=== PATIENT | female | born 1975 | race Caucasian/White ===

== ENCOUNTER 2017-09-08 09:57 | Inpatient (IN) ==
[2017-09-08] MEDS ORDERED: Ondansetron 4 MG/2 ML VIAL IVP ONE ×2 (10:09→14:51)
[2017-09-08] MEDS ORDERED: Aspirin 81 MG TAB.CHEW PO ONE (10:09)
[2017-09-08] MEDS ORDERED: 0.9 % Sodium Chloride 500 ML IVC ONE (10:09)
--- NOTE | 2017-09-08 10:15 | Emergency Department Note ---
START Narrative - START START: I examined this patient and my medical decision-making was reviewed with the PUTTY AND PATCH WORKER/PA/Advanced Practice Nurse/Resident Physician. I agree with the documented findings, disposition and treatment plan as described except to the extent set forth below. ED attending: Patient's emergency medicine resident Dr. Cobos. Please see copy of this note for H&P evaluation and management and ED disposition. We both had independent [id number] time in contact with this patient. Briefly: 41-year-old female nonsmoker who presents to the ER with chest pain nausea and vomiting radiating to forearm. Positive family history nonspecific EKG changes. Her HEART score is a 4 which is moderate risk. Patient having aspirin nitroglycerin Zofran IV fluids chest x-ray troponin and other screening labs. Admission is certainly considered. Provided 30 minutes critical care service for this patient. Disposition pending.
[2017-09-08] MEDS: Nitroglycerin 0.4 MG TAB.SUBL SL ONE ×2 (10:19→10:29)
[2017-09-08 10:38] LABS: Basophils % 0.5 %; Eosinophils # 0.4 K/mcL (0.0-0.6); Eosinophils % 4.9 %; Hemoglobin 14.5 g/dL (11.5-15.4); Immature Granulocytes % 0.4 % (0-4); Lymphocytes # 2.2 K/mcL (0.6-4.6); Lymphocytes % 29.1 %; Mean Corpuscular Hemoglobin 29.6 pg (28.0-33.3); Mean Corpuscular Volume 89.8 fL (83.0-100.0); Mean Platelet Volume 9.5 fL (9.4-12.4); Monocytes # 0.5 K/mcL (0.0-1.3); Monocytes % 6.4 %; Neutrophils # 4.3 K/mcL (1.6-8.9); Platelet Count 275 K/mcL (140-400); Segmented Neutrophils % 58.7 %
[2017-09-08 10:50] LABS: BUN/Creatinine Ratio 12 (6-26); Blood Urea Nitrogen 12 mg/dL (7-20); Calcium 8.9 mg/dL (8.6-10.8); Carbon Dioxide 22 mEq/L (19-29); Chloride 107 mEq/L (98-109); Glucose 100 mg/dL (70-99); Osmolality,Calculated 286 (280-300); Potassium 3.9 mEq/L (3.5-4.5); Sodium 138 mEq/L (136-145); eGFR For African Americans > 60 (> 60); eGFR For Non-African Americans > 60 (> 60)
[2017-09-08] MEDS ORDERED: *HR* Morphine 2 MG/ML SYRINGE IVP ONE ×2 (11:15→14:03)
[2017-09-08] MEDS ORDERED: Ondansetron 4 MG/2 ML VIAL IVP STA (11:39)
--- NOTE | 2017-09-08 12:05 | Emergency Department Note ---
Disposition Clinical Impression: Chest pain Qualifiers: Chest pain type: other chest pain Qualified Code(s): R07.89 - Other chest pain ; R07.8 - Other chest pain Disposition: Admitted As Inpatient Condition: Good Time of Disposition: 12:09 General Adult HPI - General Chief complaint: ED Chest Pain Stated complaint: chest pain Time Seen by Provider: 09/08/17 10:09 Source: patient Limitations: no limitations Nursing Notes Reviewed: Yes Vital Signs Reviewed: Yes - History of Present Illness HPI Narrative: 41-year-old female presenting to the emergency department complaining of chest pain at [place] prior to arrival. Patient states she feels like there is pressure and stabbing pain from substernal area down her left arm. She states she felt diaphoretic, nauseous and vomited multiple times. She states she had similar symptoms on but they resolved on their own. Patient has never been worked up from a cardiac standpoint. She has no significant cardiac history. Patient did have high blood pressure during but otherwise has no significant past medical history. She states she is having chest pain right now. She denies shortness of breath or dizziness. Patient does not smoke but does have significant family history of her father having a myocardial infarction at the age of early 40s. Pain Scale: 5 - Related Data Home Medications Medication Instructions Recorded Confirmed BuPROPion XL (24 HR) [Wellbutrin 150 mg PO DAILY 09/08/17 09/08/17 XL] Citalopram Hydrobromide 40 mg PO DAILY 09/08/17 09/08/17 [Citalopram HBr] Fluticasone Propionate Nasal 50 mcg NS DAILY 09/08/17 09/08/17 [Flonase] Loratadine [Claritin] 10 mg PO DAILY 09/08/17 09/08/17 Metformin HCl [Metformin HCl ER] 1,000 mg PO DAILY 09/08/17 09/08/17 Allergies Allergy/AdvReac Type Severity Reaction Status Date / Time Penicillins Allergy Anaphylaxis Verified 09/08/17 11:25 All systems ED: reviewed and negative except as stated. Constitutional: Denies: fever, chills, weakness Eyes: Reports: as per HPI ENT ED: Reports: as per HPI Cardiovascular: Reports: chest pain. Denies: palpitations, dyspnea on exertion Respiratory: Denies: cough, dyspnea, wheezes Gastrointestinal: Reports: nausea, vomiting. Denies: abdominal pain Genitourinary: Reports: as per HPI Musculoskeletal: Reports: as per HPI Integumentary: Denies: rash, abrasion, lesions Neurological: Denies: weakness, numbness, paresthesias Psychiatric: Reports: as per HPI Endocrine: Reports: as per HPI Hematological/Lymphatic: Reports: as per HPI Allergic/Immunologic: Reports: as per HPI Past Medical History - Past Medical History Attestation: Yes The following information was validated with the patient. Medical history: Reports: no medical history Psychiatric history: Reports: anxiety VISUAL EDUCATOR history: Reports: polycystic ovary syndrome - Social History Smoking Status: Never smoker Smokeless Tobacco Status: No Alcohol use: Reports: occasionally Drug use: Reports: none Physical Exam - General Limitations: no limitations General appearance: alert, in no apparent distress - Head Head exam: atraumatic, normocephalic, normal inspection - Eye Eye exam: Present: normal appearance, PERRL. Absent: scleral icterus, conjunctival injection - Neck Neck exam: Present: normal inspection, full ROM - Chest Chest inspection: Present: normal inspection, symmetric chest wall rise. Absent : tenderness, rash - Respiratory Respiratory exam: Present: normal lung sounds bilaterally. Absent: respiratory distress, wheezes - Cardiovascular Cardiovascular exam: Present: regular rate, normal rhythm, normal heart sounds - Abdominal Exam Abdominal exam: Present: soft, Non-Tender. Absent: distention, guarding, rebound - Extremities Exam Extremities exam: Present: normal inspection, full ROM - Neurological Exam Neurological exam: Present: alert, oriented X3 - Psychiatric Psychiatric exam: Present: normal affect, normal mood - Skin Skin exam: Present: warm, intact Course Course Narrative: 41-year-old female presenting to the emergency Department N chief complaint of chest pain. We will obtain a chest pain rule out including EKG, troponin, basic lab work and chest x-ray. Initial heart score looking at EKG without troponin results is 4. Patient is currently soft and chest pains we will start a nitro trial as well. Patient's alert and oriented 3 in the room with stable vital signs at this time. Disposition will be admission following results for further cardiac workup. - Reevaluation(s) Reevaluation #1: Patient's lab work and imaging has been completed and are within normal limits. Patient's shelving chest pain we will provide her with morphine at this time. I spoke with the patient who agrees to be admitted for further workup for her chest pain. I spoke with the hospitalist Steven Govea who agrees to accept the patient at this time. He would like me to order an echo under his name for further workup of this chest pain. I will complete this as well. Time: 12:08 Vital Signs Temperature 97.8 F 09/08/17 10:01 Pulse Rate 69 09/08/17 10:01 Respiratory Rate 16 09/08/17 10:01 Blood Pressure 144/97 09/08/17 10:01 O2 Sat by Pulse Oximetry 97 09/08/17 10:01 Temperature 97.8 F 09/08/17 10:01 Pulse Rate 68 09/08/17 11:58 Respiratory Rate 16 09/08/17 11:58 Blood Pressure 123/83 09/08/17 11:58 O2 Sat by Pulse Oximetry 95 09/08/17 11:58 Oxygen Delivery Oxygen Delivery Room Air Medical Decision Making - Lab Data Result diagrams: 09/08/17 10:18 09/08/17 10:18 Lab Results 09/08/17 09/08/17 09/08/17 Range/Units 10:18 10:18 10:18 WBC 7.4 (4.3-11.1) K/mcL RBC 4.90 (3.82-4.97) M/mcL Hgb 14.5 (11.5-15.4) g/dL Hct 44.0 (35.3-44.9) % MCV 89.8 (83.0-100.0) fL MCH 29.6 (28.0-33.3) pg MCHC 33.0 (31.6-35.5) g/dL RDW 13.0 (11.5-14.5) % Plt Count 275 (140-400) K/mcL MPV 9.5 (9.4-12.4) fL Immature Gran % 0.4 (0-4) % Seg Neutrophils % 58.7 % Lymphocytes % 29.1 % Monocytes % 6.4 % Eosinophils % 4.9 % Basophils % 0.5 % Neutrophils # 4.3 (1.6-8.9) K/mcL Lymphocytes # 2.2 (0.6-4.6) K/mcL Monocytes # 0.5 (0.0-1.3) K/mcL Eosinophils # 0.4 (0.0-0.6) K/mcL Basophils # 0.0 (0.0-0.2) K/mcL Sodium 138 (136-145) mEq/L Potassium 3.9 (3.5-4.5) mEq/L Chloride 107 (98-109) mEq/L Carbon Dioxide 22 (19-29) mEq/L BUN 12 (7-20) mg/dL Creatinine 0.99 (0.57-1.11) mg/dL Est GFR ( Amer) > 60 (> 60) Est GFR (Non-Af Amer) > 60 (> 60) BUN/Creatinine Ratio 12 (6-26) Glucose 100 H (70-99) mg/dL Calculated Osmolality 286 (280-300) Calcium 8.9 (8.6-10.8) mg/dL Troponin I 0.01 (0-0.03) ng/mL - EKG Data EKG #1 EKG attestation: Yes I reviewed and interpreted this EKG. EKG results narrative: Sinus rhythm. 64 bpm. Normal axis. IA interval 151, QRS 99, QTC 436. No obvious signs of ST segment elevation or ischemia noted. When compared to previous EKG completed on 12/18/2009 no significant changes noted
[2017-09-08] MEDS ORDERED: Nitroglycerin 0.4 MG TAB.SUBL SL PRN (14:04)
[2017-09-08] MEDS ORDERED: Naloxone 0.4 MG/ML INJ IVP PRN (17:12)
[2017-09-08] MEDS ORDERED: Ondansetron ODT 4 MG TAB.RAPDIS SL PRN (17:12)
[2017-09-08] MEDS ORDERED: 0.9 % Sodium Chloride 1,000 ML IVC SCH (17:15)
--- NOTE | 2017-09-08 17:23 | Internal Med History&Physical ---
Date of Encounter: 09/08/17 Time of Encounter: 17:18 Assessment and Plan (1) Chest pain Current visit: Yes Status: Acute 41/female Left-sided precordial chest pain. radiating and localized. Relieved by rest and nitroglycerin. Likely typical chest pain. Strong family history. Plan: -Admitted as an observation. -ASA/statins/beta blockers. -CBC/CMP/lipid panel/UA -Echocardiogram. -Nothing by mouth after midnight including medications. -If echocardiogram is normal and if troponins are negative then we will get a stress test tomorrow. Plan discussed with the patient and patient's family member Qualifiers: Chest pain type: other chest pain Qualified Code(s): R07.89 - Other chest pain; R07.8 - Other chest pain (2) Polycystic ovarian syndrome Current visit: Yes Status: Acute Patient is presently on metformin for polycystic ovarian syndrome. During the hospitalization we will hold her metformin. (3) Seasonal allergies Current visit: Yes Status: Acute Patient has multiple seasonal allergies. At this point we will hold her medications. Qualifiers: Chronicity: unspecified Allergic rhinitis trigger: other Qualified Code(s ): J30.89 - Other allergic rhinitis (4) DVT prophylaxis Current visit: Yes Status: Acute SCD Medical decision making: This patient has a moderate to severe risk of worsening in spite of being on the appropriate medication due to underlying comorbid conditions Internal Medicine - H&P: HPI Chief complaint: Chest pain Admitted From: Emergency Dept Plans for Post Hospital Care: Home History of present illness: PCP: [facility] from [facility]. Brief past medical history: Known to have a polycystic ovarian syndrome for which she is taking metformin, multiple issues with the allergies and she has an appointment with the ENT, anxiety disorder History of present illness: Patient had a ongoing allergies for the past 1 week. Yesterday she watched [employer] and had few beers along with the wine. She woke up this morning and at around 9:00 she had a excruciating left- sided precordial pain which was radiating to her left arm and left fingers. This pain lasted for more than 10 minutes. Patient was nauseous and she had an episode of vomiting. Patient claims that the pain was so severe that she was in deep sweat. Patient claims that this was a pain she never experienced before. Patient was at her friend's house and they called squad which gave her nitroglycerin and to which the pain responded pretty well. Patient denies that shortness of breath, dizziness, abdominal pain, diarrhea or constipation. Workup in the emergency room: Patient was evaluated in the emergency room. Basic labs were drawn. Reason for admission: Chest pain to rule out ACS. Family history: Patient's father had first [place] at the age of 34 and second [place] at the age of 52. On of both sides of patient's parents is a strong family history of coronary artery disease. Past Med Surg Social Fam HX - Past Medical History Medical history: no medical history Psychiatric history: anxiety, depression - Past Surgical History Surgical History: , cholecystectomy - Social History Smoking Status: Former smoker Smokeless Tobacco Status: No Alcohol use: occasionally Drug use: none - Family History Father Name: Kevin Marin Living Status: Still Living Hx Family Cardiac Disorders: Yes (2 [place]'s) Internal Medicine - H&P: Meds BuPROPion XL (24 HR) [Wellbutrin XL] 150 mg PO DAILY 09/08/17 [History] Citalopram Hydrobromide [Citalopram HBr] 40 mg PO DAILY 09/08/17 [History] Fluticasone Propionate Nasal [Flonase] 50 mcg NS DAILY 09/08/17 [History] Loratadine [Claritin] 10 mg PO DAILY 09/08/17 [History] Metformin HCl [Metformin HCl ER] 1,000 mg PO DAILY 09/08/17 [History] 3 Allergy/AdvReac Type Severity Reaction Status Date / Time Penicillins Allergy Anaphylaxis Verified 09/08/17 11:25 All Systems PM: A 10-system review of systems was performed and is negative for pertinent findings except as documented above in the HPI. - Constitutional Constitutional: no chills, no fever(s), no night sweats - EENT Eyes: no change in vision, no discharge, no pain, no photophobia Ears: no ear discharge, no ear pain, no tinnitus Nose, mouth and throat: no dysphagia, no nasal discharge, no neck pain, no sore throat - Cardiovascular Cardiovascular ROS IM: chest pain, diaphoresis - Respiratory Respiratory: cough - Gastrointestinal Gastrointestinal: belching, vomiting - Genitourinary Genitourinary: no change in urinary stream, no dysuria, no flank pain, no hematuria - Musculoskeletal Musculoskeletal ROS IM: no numbness, no tingling - Integumentary Integumentary IM: no rash, no unusual bruising - Neurological Neurological ROS: no confusion, no convulsions, no focal weakness, no numbness, no tingling, no tremor(s) - Hematologic/Lymphatic Hematologic/Lymphatic: no easy bruising - Constitutional Vitals: Temp Pulse Resp BP Pulse Ox 98.1 F 78 15 127/80 95 09/08/17 15:20 09/08/17 15:20 09/08/17 15:20 09/08/17 15:20 09/08/17 15:20 General appearance: Present: A&O X 3, pleasant, no acute distress, answers questions appropriately - Head Head exam: Present: atraumatic, normocephalic - Eye Eye exam: Present: PERRL, conjuntiva pink, sclera anicteric Pupils: Present: PERRL - Neck Neck exam general surgery: Present: supple, trachea midline. Absent: lymphadenopathy - Respiratory Respiratory exam: Present: CTAB. Absent: accessory muscle use, rales, rhonchi, wheezes - Cardiovascular Cardiovascular exam: Present: RRR, +S1, +S2. Absent: diastolic murmur, gallop, rubs, systolic murmur - GI/Abdominal GI/Abdominal exam: Present: normal bowel sounds, soft, no peritoneal signs. Absent: distended, tenderness - Extremities Exam Extremities exam: Present: warm, radial pulses palpable and symmetrical. Absent : calf tenderness, cyanotic, pedal edema - Neurological Exam Neurological exam: Present: CN II-XII intact, oriented X3, no focal deficits. Absent: pronater drift, facial droop, speech deficit - Skin Skin exam: Present: dry, intact Internal Med - H&P Results - Labs CBC & Chem 7: 09/08/17 10:18 09/08/17 10:18 Labs: Test results discussed with the ER physician.
[2017-09-08] MEDS ORDERED: *HR* Heparin 5,000 UNIT/ML VIAL IVP PRN ×2 (18:14)
[2017-09-08] MEDS ORDERED: *HR* Heparin 5,000 UNIT/ML VIAL IVP ONE (18:14)
[2017-09-08] MEDS ORDERED: Heparin 25,000 UNIT/500 ML D5W 25,000 UNIT/500 ML MLS IVC SCH (18:15)
[2017-09-08] MEDS: Aspirin Enteric Coated 81 MG Tablet PO SCH (18:27)
--- NOTE | 2017-09-08 18:31 | Event Note ---
Date of Encounter: 09/08/17 Time of Encounter: 06:25 RN informed regarding second troponin is 12. already on ASA 81/Lipitor 40/Metoprolol 12.5/Nitro started Heparin drip spoke with Dr Andino ( Interventional Cardiology) all above updated to him all above including location of the patient. recommended : preg test. will get test
[2017-09-08] MEDS ORDERED: *HR* Heparin 10,000 UNIT/10 ML VIAL ONE (18:45)
[2017-09-08] MEDS ORDERED: Heparin 1,000 UNITS/500 mL NS 500 ML ONE (18:45)
[2017-09-08] MEDS ORDERED: 0.9 % Sodium Chloride 2,000 ML ONE (18:45)
[2017-09-08] MEDS ORDERED: *HR* FentaNYL (PF) 250 MCG/5 ML VIAL ONE (18:45)
[2017-09-08] MEDS ORDERED: *HR* Midazolam HCl 5 MG/5 ML VIAL IVP ONE (18:45)
[2017-09-08] MEDS ORDERED: Nitroglycerin 1,000 MCG/10 ML VIAL IV ONE (18:46)
[2017-09-08 18:59] LABS: Hematocrit 42.2 % (35.3-44.9); Hemoglobin 14.2 g/dL (11.5-15.4); Mean Corpuscular HGB Conc 33.6 g/dL (31.6-35.5); Mean Corpuscular Hemoglobin 30.1 pg (28.0-33.3); Mean Corpuscular Volume 89.4 fL (83.0-100.0); Mean Platelet Volume 9.7 fL (9.4-12.4); Platelet Count 286 K/mcL (140-400); Red Blood Count 4.72 M/mcL (3.82-4.97); Red Cell Distribution Width 12.8 % (11.5-14.5)
[2017-09-08] MEDS ORDERED: *HR* Ticagrelor 90 MG TABLET PO ONE (19:00)
[2017-09-08 19:01] LABS: INR 1.1; Prothrombin Time 11.3 Seconds (9.4-12.1)
[2017-09-08] MEDS ORDERED: *HR* Ticagrelor 90 MG TABLET ONE (19:02)
[2017-09-08 19:19] LABS: Activated Partial Thrombo Time > 360.0 Seconds (26.0-36.0)
[2017-09-08] MEDS ORDERED: Tirofiban 12.5 MG/250ML 12.5 MG/250 ML BAG ONE (19:22)
[2017-09-08 19:31] LABS: Heparin anti-factor XA UFH 1.61 IU/mL (0.30-0.70)
[2017-09-08] MEDS ORDERED: Nitroglycerin 25 MG/250 ML INFUS..BTL IVC ONE (19:53)
[2017-09-08] MEDS: Famotidine 20 MG TABLET PO SCH ×2 (20:35→22:18)
[2017-09-08] MEDS: Acetaminophen 325 MG TABLET PO PRN (20:36)
--- NOTE | 2017-09-08 21:07 | Cardiology Consult Note ---
Date of Encounter: 09/08/17 Time of Encounter: 21:01 Assessment and Plan (1) Chest pain Current Visit: Yes Status: Acute Continue calcium channel blockers and IV nitro drip for coronary artery spasm. Medical management also for coronary artery disease including a statin aspirin and Plavix. Recommend holding beta blockers at this time and obtaining a tox/ drug screen. Serial cardiac markers and echocardiogram in a.m. If troponins trend higher and patient continues to have active chest pain may consider possible POBA of the mid LAD with a 1.2 mm or 1.5 mm balloon. Qualifiers: Chest pain type: other chest pain Qualified Code(s): R07.89 - Other chest pain; R07.8 - Other chest pain Code(s): R07.9 - Chest pain, unspecified Discussion w patient/family: The assessment and plan as outlined above was discussed with the patient and/or family members who expressed understanding and agreement. All questions were answered. Thank you for involving us in the care of your patient. Please call with any questions. History of Present Illness Consult date: 09/08/17 Requesting physician: Zoran Roe Consult reason: NSTEMI Chief complaint: CP History of present illness: Ms. Hood Marin is a 41 year old female presents to emergency department with chest pain earlier this morning. Patient was seen and evaluated with chest pain on and off and initial troponin negative. Cardiology was consulted and around 7 PM due to an elevated troponin of 12. Patient was having on and off chest pain with dynamic EKG changes with V2 ST elevation and lateral reciprocal changes. Patient was taken urgently to the cardiac catheter lab where she was found to have a long segment of the mid LAD diffusely diseased. This segment involves a small caliber mid to distal LAD. Likely mid to distal LAD is less than 2.0 mm in diameter. LVEF during her calf is approximately 35% with mid to distal/apical and distal inferior wall dyskinesis. Patient was started on IV nitro drip during the left heart catheter which helped decrease her chest pain. Serial cardiac markers are pending. Her chest pain started today with one single previous episode however no gradual onset of chest pain or exertional shortness of breath noted. She has been under a lot of stress lately described by the patient and her family members. Currently her chest pain has resolved with very minimal right-sided back discomfort. Her retrosternal chest pain left arm numbness and jaw pain have all resolved on an IV nitro drip. She denies any orthopnea PND presyncope or syncope. Past Med Surg Social Fam HX - Past Medical History Medical history: no medical history Psychiatric history: anxiety, depression - Past Surgical History Surgical History: , cholecystectomy - Social History Smoking Status: Former smoker Smokeless Tobacco Status: No Alcohol use: occasionally Drug use: none - Family History Father Name: Kevin Marin Living Status: Still Living Hx Family Cardiac Disorders: Yes (2 [place]'s) Medications and Allergies BuPROPion XL (24 HR) [Wellbutrin XL] 150 mg PO DAILY 09/08/17 [History] Citalopram Hydrobromide [Citalopram HBr] 40 mg PO DAILY 09/08/17 [History] Fluticasone Propionate Nasal [Flonase] 50 mcg NS DAILY 09/08/17 [History] Loratadine [Claritin] 10 mg PO DAILY 09/08/17 [History] Metformin HCl [Metformin HCl ER] 1,000 mg PO DAILY 09/08/17 [History] 3 Allergy/AdvReac Type Severity Reaction Status Date / Time Penicillins Allergy Anaphylaxis Verified 09/08/17 11:25 All Systems Review: A 10-system review of systems was performed and is negative for pertinent findings except as documented above in the HPI. Physical Examination Vital Signs, Last 4 Hours Temp Pulse Resp BP Pulse Ox 09/08/17 20:26 98.1 F 75 18 128/83 99 09/08/17 18:45 98.4 F 102 16 145/92 96 General: Conversant, No Apparent Distress HEENT: Atraumatic, Normocephaly, Mucus Membranes Moist Neck: No JVD, Normal carotid pulses Cardiac: Reg Rate and Rhythm, Normal S1 and S2, No Murmur Lungs: Normal Breath Sounds, No Wheeze, Rales, Rhonchi Neuro: Alert and responsive, No focal deficits noted Abdomen: Soft, Non-Tender Skin: No rashes noted on visualized skin Musculoskeletal: No Chest Wall Tenderness Extremities: No Clubbing, No Cyanosis, No Edema, Normal Pulses Results 09/08/17 18:48 09/08/17 10:18 Lab Results 09/08/17 09/08/17 09/08/17 17:42 18:48 18:48 WBC 13.1 H D Hgb 14.2 Hct 42.2 Plt Count 286 INR 1.1 APTT > 360.0 H* Troponin I 12.57 H* Consult Discharge Plan - Plan Referrals: NONE,PCP [Primary Care Provider] -
[2017-09-08 21:32] LABS: Amphetamine Screen,Urine Negative ng/mL (Cutoff=1000); Barbiturate Screen,Urine Negative ng/mL (Cutoff=200); Benzodiazepines Screen,Urine Positive ng/mL (Cutoff=200); Cannabinoid Screen,Urine Negative ng/mL (Cutoff = 50); Cocaine Screen,Urine Negative ng/mL (Cutoff= 300); Opiate Screen,Urine Positive ng/mL (Cutoff=300); Phencyclidine Screen,Urine Negative ng/mL (Cutoff=25)
[2017-09-08 21:45] LABS: Activated Partial Thrombo Time 140.4 Seconds (26.0-36.0)
[2017-09-08 21:57] LABS: Heparin anti-factor XA UFH 0.98 IU/mL (0.30-0.70)
[2017-09-08] MEDS: *HR* LORazepam 2 MG/ML VIAL IVP PRN (22:18)
[2017-09-09] MEDS: Acetaminophen 325 MG TABLET PO PRN (03:17)
[2017-09-09 04:50] LABS: Bilirubin,Urine Negative (Negative); Blood,Urine Large (Negative); Clarity,Urine Clear (Clear); Color,Urine Yellow (Yellow); Glucose,Urine (UA) 100 mg/dL (Normal); Ketones,Urine Negative (Negative); Leukocyte Esterase,Urine Negative (Negative); Nitrite,Urine Negative (Negative); Protein,Urine Negative (Neg-Trace); Specific Gravity,Urine > 1.030 (1.010-1.025); Urobilinogen,Urine Normal (Normal)
[2017-09-09 04:51] LABS: Bacteria,Urine Few per hpf (None-Few); Hyaline Casts,Urine None Seen per lpf (None-Few); RBC,Urine 50-100 per hpf (0-3); Squamous Epithelial Cell,Urine Many per lpf (None-Few)
[2017-09-09 05:04] LABS: Basophils % 0.1 %; Eosinophils % 0.2 %; Hematocrit 36.6 % (35.3-44.9); Immature Granulocytes % 0.3 % (0-4); Immature Platelets 3.1 % (1.1-6.1); Lymphocytes # 1.5 K/mcL (0.6-4.6); Lymphocytes % 10.9 %; Mean Corpuscular HGB Conc 33.1 g/dL (31.6-35.5); Mean Corpuscular Hemoglobin 29.4 pg (28.0-33.3); Mean Corpuscular Volume 89.1 fL (83.0-100.0); Mean Platelet Volume 9.5 fL (9.4-12.4); Monocytes # 0.8 K/mcL (0.0-1.3); Monocytes % 5.4 %; Neutrophils # 11.6 K/mcL (1.6-8.9); Platelet Count 271 K/mcL (140-400); Red Blood Count 4.11 M/mcL (3.82-4.97); Red Cell Distribution Width 12.9 % (11.5-14.5); Segmented Neutrophils % 83.1 %
[2017-09-09 05:05] LABS: Hemoglobin 12.1 g/dL (11.5-15.4)
[2017-09-09 05:16] LABS: Activated Partial Thrombo Time 43.7 Seconds (26.0-36.0)
[2017-09-09 05:22] LABS: Alanine Aminotransferase 32 Units/L (0-55); Albumin 3.1 g/dL (3.5-5.0); Albumin/Globulin Ratio 1.1 (1.1-2.2); Alkaline Phosphatase 57 Units/L (38-126); Aspartate Amino Transferase 117 Units/L (5-34); BUN/Creatinine Ratio 11 (6-26); Bilirubin,Total 0.3 mg/dL (0.2-1.2); Blood Urea Nitrogen 9 mg/dL (7-20); Calcium 7.9 mg/dL (8.6-10.8); Carbon Dioxide 20 mEq/L (19-29); Chloride 108 mEq/L (98-109); Chol/HDL Ratio 3.1 (0-4.9); Cholesterol 149 mg/dL (< 200); Globulin 2.7 g/dL (2.4-3.5); Glucose 126 mg/dL (70-99); HDL Cholesterol 48 mg/dL (40-59); LDL Cholesterol,Calculated 86 mg/dL (0-99); Magnesium 1.9 mg/dL (1.6-2.6); Osmolality,Calculated 276 (280-300); Phosphorous 2.6 mg/dL (2.3-4.7); Potassium 3.6 mEq/L (3.5-4.5); Sodium 133 mEq/L (136-145); Total Protein 5.8 g/dL (6.0-8.3); Triglycerides 75 mg/dL (< 150); eGFR For African Americans > 60 (> 60); eGFR For Non-African Americans > 60 (> 60)
[2017-09-09] MEDS ORDERED: Nitroglycerin 25 MG/250 ML INFUS..BTL IVC SCH (08:15)
[2017-09-09] MEDS ORDERED: *HR* Ticagrelor 90 MG TABLET PO SCH (09:00)
--- NOTE | 2017-09-09 09:07 | Invasive Diagnostic Lab Proc ---
Name: Nayely Joel Date of Study: 09/08/2017 Date: 1975 Ht: 66.1in Medical Record#: [id number] Age: 41 Wt: 231.49lb Gender: Female BSA: 2.13 Order #: [id number] BMI: 37.2 Physicians Procedure Physician: Cassandra Vargas MD Referring MD: Referring MD: Staff Name Position Time In Darrion Montiel RN Cigarette Machines Mechanic 06:58 PM Rosetta Blum RT (R) Scrub 06:58 PM Rigo Chi RT (R) Monitor 06:58 PM Indications Indication Non-Stemi Procedures Performed Procedure L HRT ARTERY/VENTRICLE ANGIO Pre-Procedure Checklist Informed consent is complete signed and on chart. H&P is on chart. ID band is on and ID verified with patient. Pt not NPO for procedure and MD aware. The procedure was described for the patient and questions were answered. Blood Pressure: 145/92 ECG is on chart. Rhythm: NSR Plan of Care Patient will tolerate the procedure without complications. Adequate level of comfort will be maintained. Hemodynamics will remain stable Patient will recover from procedure without complications. Respiratory function will be maintained. Cardiac rhythm will remain stable. Patient temperature will be maintained. Patient and/or family have verbalized understanding of the procedure. Patient Education Intravenous Access Time IV Size Location DC'd Fluid/Drip Rate Units RN 06:57 PM 20g 1 1/" Patent On Arrival Lt Antecubital 0.9NaCl 25 ml/hr Darrion Montiel RN Allergies Penicillins Vital Signs Time BP (mmHg) HR (bpm) O2 Sat. RR (bpm) LOC 06:57 PM 145 / 92 102 96 % 16 5 = Fully awake and oriented or at pre-proc level 07:09 PM / % 5 = Fully awake and oriented or at pre-proc level 07:09 PM / % 4 = Oriented but drowsy 07:25 PM / % 4 = Oriented but drowsy 07:40 PM / % 4 = Oriented but drowsy 07:57 PM 137 / 86 85 100 % 17 08:02 PM 135 / 81 87 100 % 17 08:07 PM 132 / 79 82 99 % 17 07:12 PM 138 / 84 196 98 % 18 07:17 PM 137 / 85 105 99 % 21 07:22 PM 133 / 81 98 96 % 19 07:27 PM 140 / 87 98 96 % 18 07:32 PM 133 / 79 94 96 % 07:37 PM 134 / 89 89 97 % 14 07:42 PM 130 / 75 97 99 % 20 07:47 PM 131 / 82 88 100 % 20 07:52 PM 140 / 85 92 100 % 20 07:55 PM / % 5 = Fully awake and oriented or at pre-proc level Procedural Medications Time Medication Dose Units Method Given By 07:14 PM Oxygen 2 L/min nasal cannula Darrion Montiel RN 07:16 PM Versed 1 mg Intravenous Darrion Montiel RN 07:16 PM Fentanyl 50 mcg Intravenous Darrion Montiel RN 07:17 PM Lidocaine 2% 10 ml Subcutaneous Cassandra Vargas MD 07:29 PM Nitroglycerin 200 mcg Intracoronary Thee Vargas MD 07:34 PM Nitroglycerin 200 mcg Intracoronary Thee Vargas MD 07:40 PM Nitroglycerin 100 mcg Intracoronary Thee Vargas MD 07:55 PM Nitroglycerin 2 mcg/min Intravenous Darrion Montiel RN 07:59 PM Heparin 29.4 ml/hr Intravenous Darrion Montiel RN 08:04 PM Nitroglycerin 5 mcg/min Intravenous Darrion Montiel RN ASA Classification: CLASS II- Mild systemic disease (i.e. well-controlled diabetes, hypertension, asthma, cigarette smoking) Emergent Procedure: ASA score is assumed Mark Score Preprocedure Postprocedure Activity 2- Moves 4 extremities sustained head lift Activity 2- Moves 4 extremities sustained head lift Circulation 2- SBP +/= 20 points of pre-anesthetic level Circulation 2- SBP +/= 20 points of pre-anesthetic level Consciousness 2- Awake and alert oriented x 3 Consciousness 2- Awake and alert oriented x 3 O2 Saturation 2- Able to maintain O2 satruation of 92% on room air O2 Saturation 2- Able to maintain O2 satruation of 92% on room air Respiratory 2- Able to deep breathe and cough well Respiratory 2- Able to deep breathe and cough well Total Score 10 Total Score 10 Contrast Agent: Isovue Diagnostic Contrast: 213 ml Total Contrast: 213 ml Fluoro Dose: 1037 mGy Activated Clotting Time Time Seconds to Clot 07:23 PM 219 08:08 PM 201 Procedure Log Time Note Enter By 06:52 PM CathStat 06:58 PM Darrion Montiel RN Position: Cigarette Machines Mechanic Time in: 18:58 [email or web address] 06:58 PM Rosetta Blum RT (R) Position: Scrub Time in: 18:58 [email or web address] 06:58 PM Rigo Chi RT (R) Position: Monitor Time in: 18:58 [email or web address] 06:58 PM Patient charges- Angio tray pack, Navilyst 3mm J, Pulse Oximetry and ACIST tubing and transducer [email or web address] 07:08 PM Pt arrived to skilled labor 2 at 19:08 [email or web address] 07:09 PM Pt arrived to skilled labor 2 at 19:09 [email or web address] 07:09 PM Physician arrived 19:09 07:09 PM Meet and greet completed 07:09 PM Sign in performed according to hospital policy. bw 07:09 PM Procedure start 19:09 [email or web address] 07:09 PM ASA Class CLASS II- Mild systemic disease (i.e. well-controlled diabetes, hypertension, asthma, cigarette smoking) [email or web address] 07:09 PM Case Delayed No 07:09 PM Time: 19:09 Patient comfortable and pain free: Yes 07:09 PM Time: 19:09LOC: 5 = Fully awake and oriented or at pre-proc level bw 07:12 PM Vitals capture started with the following parameters, Patient=Adult, Interval=5 min, Initial Kmgbdfdh=005 mmHg, Deflation Rate=5 mmHg, Cuff placed on Right Arm 07:12 PM MB=968 bpm, RLGP=065/84 mmhg, SpO2=98.0 %, Resp=18 B/min 07:14 PM Time: 19:14 Oxygen on at 2 L/min per nasal cannula by Darrion Montiel RN 07:14 PM Clinical Presentation: Non-STEMI 07:14 PM Hair removed from procedure site in procedure lab using clippers. Bilateral groin prepped with Chloraprep by Rigo Chi RT (R), safety strap applied then patient was draped. Skin intact. 07:15 PM Recorded ECG: PA=391 Condition=Condition 1 07:16 PM Time: 19:16 Versed 1 mg Intravenous Given by Darrion Montiel RN 07:16 PM Time: 19:16 Fentanyl 50 mcg Intravenous Given by Darrion Montiel RN [email or web address] 07:17 PM Time: 19:17 10 ml Lidocaine 2% to right groin Subcutaneous Given by Cassandra Vargas MD [facility] 07:17 PM Micro-Introducer Kit utilized for sheath placement bw 07:17 PM Pressure channel 1 zeroed. 07:17 PM DG=965 bpm, YQHX=093/85 mmhg, SpO2=99.0 %, Resp=21 B/min, Comment=NSR 07:18 PM Bolus angiogram of right Femoral complete: ml/sec for a total of 5 mls bw 07:19 PM Access obtained by percutaneous puncture. 6Fr 10cm Terumo [place] sheath placed in right Femoral artery. [id number] [email or web address] 07:19 PM 0.035 145cm Navilyst 3mmJ wire [id number] 07:19 PM 5Fr FR 4 catheter inserted over the wire DN 07:20 PM ACT Drawn bw 07:20 PM Recorded Pressure: Ao, HR=94, Condition=Condition 1 (Aorta) Ao 133/91/110 07:21 PM RCA angiography performed in multiple views. 07:21 PM Coronary Dominance: right bw 07:21 PM Catheter removed bw 07:21 PM Inflation device was opened. bw 07:22 PM 6Fr XB LAD 3.5 [place] Bright-Tip guide catheter was used to cannulate the PCI vessel successfully. reused? No 07:22 PM HR=98 bpm, UYCJ=184/81 mmhg, SpO2=96.0 %, Resp=19 B/min, Comment=NSR 07:23 PM LCA angiography performed in multiple views. bw 07:24 PM At 19:23 the ACT was 219 seconds. 07:24 PM Recorded Pressure: Ao, HR=92, Condition=Condition 1 (Aorta) Ao 162/84/113 07:25 PM Time: 19:09LOC: 4 = Oriented but drowsy [email or web address] 07:25 PM Time: 19:09 Patient comfortable and pain free: No rt arm pain [email or web address] 07:25 PM Guide catheter removed intact. [email or web address] 07:26 PM 5Fr FL 4 catheter inserted over the wire DN bw 07:27 PM HR=98 bpm, CJJO=195/87 mmhg, SpO2=96.0 %, Resp=18 B/min, Comment=NSR 07:27 PM Recorded Pressure: Ao, KM=803, Condition=Condition 1 (Aorta) Ao 136/84/108 07:27 PM LCA angiography performed in multiple views. [email or web address] 07:29 PM Time: 19:29 Nitroglycerin 200 mcg Intracoronary Given by Thee Vargas MD ilson 07:29 PM Recorded Pressure: Ao, AC=376, Condition=Condition 1 (Aorta) Ao 113/87/99 07:30 PM Physician reviewing films [email or web address] 07:31 PM Catheter removed [email or web address] 07:31 PM 4Fr JL 4 catheter inserted over the wire [id number] [email or web address] 07:32 PM HR=94 bpm, KMEU=487/79 mmhg, SpO2=96.0 %, Comment=NSR 07:33 PM Recorded Pressure: Ao, HR=94, Condition=Condition 1 (Aorta) Ao 122/85/104 07:34 PM Time: 19:34 Nitroglycerin 200 mcg Intracoronary Given by Thee Vargas MD [email or web address] 07:34 PM Catheter removed [email or web address] 07:35 PM 6Fr XB3.0 [place] Bright-Tip guide catheter was used to cannulate the PCI vessel successfully. reused? No [email or web address] 07:37 PM HR=89 bpm, EALZ=228/89 mmhg, SpO2=97.0 %, Resp=14 B/min, Comment=NSR 07:37 PM Recorded Pressure: Ao, HR=91, Condition=Condition 1 (Aorta) Ao 130/86/106 07:38 PM LCA angiography performed in multiple views. [email or web address] 07:39 PM Physician reviewing films [email or web address] 07:40 PM Time: 19:25LOC: 4 = Oriented but drowsy [email or web address] 07:40 PM Time: 19:25 Patient comfortable and pain free: Yes [email or web address] 07:40 PM Time: 19:40 Nitroglycerin 100 mcg Intracoronary Given by Thee Vargas MD [email or web address] 07:41 PM Recorded Pressure: Ao, HR=94, Condition=Condition 1 (Aorta) Ao 133/90/109 07:42 PM HR=97 bpm, JJTD=686/75 mmhg, SpO2=99.0 %, Resp=20 B/min, Comment=NSR 07:43 PM Physician reviewing films [email or web address] 07:45 PM Recorded Pressure: Ao, HR=90, Condition=Condition 1 (Aorta) Ao 138/101/115 07:45 PM Guide catheter removed intact. [email or web address] 07:46 PM 5Fr Pigtail catheter inserted over the wire [facility] 07:46 PM Catheter selectively placed in left ventricle [facility] 07:46 PM Bolus angiogram of left Ventricle complete: 10 ml/sec for a total of 30 mls [place] [address] 07:46 PM Recorded Pressure: LV, HR=87, Condition=Condition 1 (Left Ventricle) LV 143/19/25 07:47 PM HR=88 bpm, HLMY=899/82 mmhg, ScZ3=856.0 %, Resp=20 B/min 07:49 PM Recorded Pressure: LV, Ao, HR=88, Condition=Condition 1 (Left Ventricle) LV 151/23/26, (Aorta) Ao 141/32/84 07:50 PM Physician reviewing films [place] [address] 07:52 PM HR=92 bpm, JNTX=311/85 mmhg, WjX8=115.0 %, Resp=20 B/min, Comment=NSR 07:55 PM Time: 19:40 Patient comfortable and pain free: No rt arm pain [place] [address] 07:55 PM Time: 19:40LOC: 4 = Oriented but drowsy [place] [address] 07:55 PM Time: 19:55 Nitroglycerin 2 mcg/min Intravenous Given by Darrion Montiel RN [employer] [place] [address] 07:57 PM Recorded Pressure: Ao, HR=85, Condition=Condition 1 (Aorta) Ao 179/89/124 07:57 PM HR=85 bpm, MAYO=363/86 mmhg, UzR3=367.0 %, Resp=17 B/min, Comment=NSR 07:59 PM Time: 19:59 Heparin 29.4 ml/hr Intravenous Given by Darrion Montiel RN [place] [place] [address] 08:02 PM HR=87 bpm, HJXS=487/81 mmhg, GvG8=913.0 %, Resp=17 B/min, Comment=NSR 08:03 PM Recorded ECG: HR=84 Condition=Condition 1 08:04 PM Time: 20:04 Nitroglycerin 5 mcg/min Intravenous Given by Darrion Montiel RN [employer] [place] [address] 08:05 PM Procedure completed at 20:05 [place] [address] 08:05 PM Sign out completed: Radiation Dose 1036.62 mGy Fluoro Time: 7.7 Isovue 370 - 200ml contrast 213 ml given by Cassandra Vargas MD. Complications: NoneCardiac Rehab Consult needed: Confirmed administered medications: Yes [email or web address] 08:05 PM Sheath left in place to be pulled on floor/holding areaV+Pad [email or web address] 08:07 PM Lesion found in Mid LAD. Pre Stenosis: 60 Pre JOSSIE Flow: [email or web address] 08:07 PM Mid/Distal Left Anterior Descending Coronary Artery and diagonal branches with 60% stenosis. If graft is supplying this area, 0 % stenosis [email or web address] 08:07 PM HR=82 bpm, QLEK=535/79 mmhg, SpO2=99.0 %, Resp=17 B/min, Comment=NSR 08:08 PM Post ECG NSR [email or web address] 08:08 PM At 20:08 the ACT was 201 seconds. [email or web address] 08:08 PM Post Blood Pressure 132/79 [email or web address] 08:08 PM Information taught Cardiac Cath [email or web address] 08:08 PM Education needs Procedure, Plan of Care, and Disease Process [email or web address] 08:08 PM Learning barriers :Sedated [email or web address] 08:08 PM Education Methods Verbal [email or web address] 08:08 PM Education evaluation Needs further instruction [email or web address] 08:09 PM Site status No bleeding/hematoma - Rt Groin as reported by Lisbeth Devine RN at 20:08 [email or web address] 08:09 PM Opsite applied [email or web address] 08:09 PM Delay to floor No [email or web address] 08:09 PM Complications: None [email or web address] 08:09 PM Fluoro Time: 7.7 [email or web address] 08:09 PM Isovue 370 - 200ml contrast 213 ml given by Cassandra Vargas MD. [email or web address] 08:09 PM Radiation Dose 1036.62 mGy [email or web address] 08:09 PM Vitals capture stopped. 08:10 PM Time: 19:55LOC: 5 = Fully awake and oriented or at pre-proc level [email or web address] 08:10 PM Time: 19:55 Patient comfortable and pain free: Yes [email or web address] 08:13 PM Report given to karen ALBARRAN Pt taken to ICU Room #10. 20:11 [email or web address] 08:[address] Vargas talking to family in waiting area. [email or web address] 08:18 PM Patient out of room: 20:18 [email or web address] Complications Complication None None Hemodynamics Pressures Site Systolic/A Wave Diastolic/V Wave Mean AO 133 91 110 AO 162 84 113 AO 136 84 108 AO 113 87 99 AO 122 85 104 AO 130 86 106 AO 133 90 109 AO 138 101 115 LV 143 19 25 LV 151 23 26 AO 141 32 84 AO 179 89 124 Post Procedure Information Blood Pressure: 132/79 mmHg Rhythm: NSR Post procedural instructions were given Site Checks Time Location Status Staff Sheath In? Note 08:08 PM Rt Groin No bleeding/hematoma Rosetta Blum RT (R) Pulses Time Site Pre-Procedure Post-Procedure Note 09/08/2017 6:57:00 PM Bilateral DP/PT 2+ 09/08/2017 6:57:00 PM Bilateral radial 2+ Updated by Rigo Chi RT (R) on 09/08/2017 8:20:08 PM RT Charisma electronically signed on 09/08/2017 8:20:34 PM with status of Final
[2017-09-09] MEDS: BuPROPion XL (24 HR) 150 MG TABLET PO SCH (09:14)
[2017-09-09] MEDS: Famotidine 20 MG TABLET PO SCH ×2 (09:14→21:21)
[2017-09-09] MEDS: Aspirin Enteric Coated 81 MG Tablet PO SCH (09:14)
[2017-09-09] MEDS ORDERED: *HR* FentaNYL (PF) 100 MCG/2 ML VIAL IVP ONE (09:38)
--- NOTE | 2017-09-09 10:19 | Event Note ---
Date of Encounter: 09/09/17 Time of Encounter: 10:17 - Cardiology Event Note Ms. Morataya is currently chest pain free on NTG gtt. Plan of care discussed with Dr. Vargas and Dr. Chapman, planning for repeat LHC today to re-evaluate the LAD. Patient seen to have coronary vasospasms. Troponin continued to trend upward. As high as 24. Continues to have groin sheath. R/B/A of repeat LHC discussed and she agrees to proceed.
--- NOTE | 2017-09-09 10:27 | Internal Med Progress Note ---
Date of Encounter: 09/09/17 Time of Encounter: 10:26 - Assessment and plan (1) Chest pain Current Visit: Yes Status: Acute Assessment and plan: Patient had a ongoing chest pain yesterday. She had her second troponin drawn. Her second troponin was 12. EKG was done. EKG was suggestive of a ST elevation in V3. Cardiology consult was called as a stat consult. Cardiology was on the board. Patient underwent left heart catheterization. Please read the cardiology note and consult regarding the same. Qualifiers: Chest pain type: other chest pain Qualified Code(s): R07.89 - Other chest pain; R07.8 - Other chest pain (2) Polycystic ovarian syndrome Current Visit: Yes Status: Acute Assessment and plan: Stable polycystic ovarian syndrome. (3) Seasonal allergies Current Visit: Yes Status: Acute Assessment and plan: Patient does not have any seasonal allergies now. Qualifiers: Chronicity: unspecified Allergic rhinitis trigger: other Qualified Code(s ): J30.89 - Other allergic rhinitis (4) DVT prophylaxis Current Visit: Yes Status: Acute Assessment and plan: Patient is presently on heparin Medical decision making: This patient has a moderate to severe risk of worsening in spite of being on the appropriate medication due to the underlying comorbid conditions. - Subjective Interval history: Patient seen and examined. Chart reviewed. Patient is comfortably lying in the bed. Events noted from RN regarding troponin/creatinine kinase. - Constitutional Vitals: Temp Pulse Resp BP Pulse Ox 97.9 F 78 10 134/95 98 09/09/17 07:50 09/09/17 10:00 09/09/17 10:00 09/09/17 10:00 09/09/17 10:00 General appearance: Present: A&O X 3, pleasant, no acute distress, answers questions appropriately - Head Head exam: Present: atraumatic, normocephalic - Eye Eye exam: Present: PERRL, conjuntiva pink, sclera anicteric Pupils: Present: PERRL - Neck Neck exam general surgery: Present: supple, trachea midline. Absent: lymphadenopathy - Respiratory Respiratory exam: Present: CTAB. Absent: accessory muscle use, rales, rhonchi, wheezes - Cardiovascular Cardiovascular exam: Present: RRR, +S1, +S2. Absent: diastolic murmur, gallop, rubs, systolic murmur - GI/Abdominal GI/Abdominal exam: Present: normal bowel sounds, soft, no peritoneal signs. Absent: distended, tenderness - Extremities Exam Extremities exam: Present: warm, radial pulses palpable and symmetrical. Absent : calf tenderness, cyanotic, pedal edema - Neurological Exam Neurological exam: Present: CN II-XII intact, oriented X3, no focal deficits. Absent: pronater drift, facial droop, speech deficit - Skin Skin exam: Present: dry, intact Internal Medicine: Result - Labs CBC & Chem 7: 09/09/17 04:53 09/09/17 04:53 Labs: Short CBC 09/08/17 09/09/17 Range/Units 18:48 04:53 WBC 13.1 H D 14.0 H (4.3-11.1) K/mcL Hgb 14.2 12.1 D (11.5-15.4) g/dL Hct 42.2 36.6 (35.3-44.9) % Plt Count 286 271 (140-400) K/mcL Neutrophils # 11.6 H (1.6-8.9) K/mcL BMP 09/09/17 04:53 Sodium 133 L Potassium 3.6 Chloride 108 Carbon Dioxide 20 BUN 9 Creatinine 0.79 Glucose 126 H Calcium 7.9 L Cardiac Enzymes 09/08/17 09/08/17 09/08/17 Range/Units 17:42 21:16 22:02 Troponin I 12.57 H* 22.42 H* 24.03 H* (0-0.03) ng/mL Liver Function 09/09/17 Range/Units 04:53 Total Bilirubin 0.3 (0.2-1.2) mg/dL AST 117 H (5-34) Units/L ALT 32 (0-55) Units/L Alkaline Phosphatase 57 (38-126) Units/L Albumin 3.1 L (3.5-5.0) g/dL Urine 09/08/17 Range/Units 21:12 Urine Color Yellow (Yellow) Urine Clarity Clear (Clear) Urine pH 7.0 (5.0-8.0) pH Units Ur Specific [place] > 1.030 H (1.010-1.025) Urine Protein Negative (Neg-Trace) mg/dL Urine Glucose (UA) 100 H (Normal) mg/dL - ABG Interpretation ABG results: PT/INR, D-dimer PT 11.0 Seconds (9.4-12.1) 09/09/17 04:53 Consult Discharge Plan - Plan Referrals: NONE,PCP [Primary Care Provider] -
[2017-09-09] MEDS ORDERED: 0.9 % Sodium Chloride 1,000 ML ONE ×2 (10:29→10:54)
[2017-09-09] MEDS ORDERED: Nitroglycerin 1,000 MCG/10 ML VIAL IV ONE (10:29)
[2017-09-09] MEDS ORDERED: Heparin 1,000 UNITS/500 mL NS 500 ML ONE (10:29)
[2017-09-09] MEDS ORDERED: *HR* Heparin 10,000 UNIT/10 ML VIAL ONE (10:29)
[2017-09-09] MEDS ORDERED: *HR* Midazolam HCl 2 MG/2 ML VIAL ONE ×2 (10:54→11:11)
--- NOTE | 2017-09-09 11:02 | Pre-Sedation Evaluation ---
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 Recent Vitals: Last Vital Signs Temp 97.9 F 09/09/17 07:50 Pulse 78 09/09/17 10:00 Resp 10 09/09/17 10:00 BP 134/95 09/09/17 10:00 Pulse Ox 98 09/09/17 10:00 H&P (including ROS) documented in medical record: Yes Previous reaction to sedatives/anesthetics: No Dietary Status: NPO after Midnight Airway Assessment: Patient can open mouth completely, TMJ function normal Dentition: No loose teeth or bridges Possible difficult airway: No ASA Classification *see protocol: CLASS III-Severe systemic disease Plan of Care: Pt appropriate candidate for procedure/moderate/conscious sedation , Risks/benefits of procedure/sedation discussed w/ patient/family, If not NPO; Risk of intake outweiged by necessity to perform procedure
[2017-09-09] MEDS ORDERED: *HR* Adenosine 6 MG/2 ML VIAL IVP ONE (11:20)
[2017-09-09] MEDS ORDERED: Adenosine 90 MG/30 ML MLS IV ONE (12:02)
--- NOTE | 2017-09-09 12:29 | Invasive Diagnostic Lab Proc ---
Name: Nayely Joel Date of Study: 09/09/2017 Date: 1975 Ht: 66.1in Medical Record#: [id number] Age: 41 Wt: 233.69lb Gender: Female BSA: 2.14 Order #: [id number] BMI: 37.56 Physicians Procedure Physician: Tucker Chapman DO Referring MD: Referring MD: Staff Name Position Time In Kati Prather RN Real Estate Representative 10:45 AM Kaya George RN Real Estate Representative 10:45 AM Matias Momin RN Monitor 10:45 AM Rigo Chi RT (R) Scrub 10:46 AM Latosha Farfan RN Monitor 10:46 AM Indications Indication Non-Stemi Procedures Performed Procedure CORONARY ARTERY ANGIO S&I IV Doppler BLD Flow 1st Vessel Pre-Procedure Checklist Informed consent is complete signed and on chart. H&P is on chart. ID band is on and ID verified with patient. Patient NPO for procedure The procedure was described for the patient and questions were answered. Blood Pressure: 0/ ECG is on chart. Rhythm: NSR Plan of Care Patient will tolerate the procedure without complications. Adequate level of comfort will be maintained. Hemodynamics will remain stable Patient will recover from procedure without complications. Respiratory function will be maintained. Cardiac rhythm will remain stable. Patient temperature will be maintained. Patient and/or family have verbalized understanding of the procedure. Patient Education Intravenous Access Time IV Size Location DC'd Fluid/Drip Rate Units RN 10:31 AM 20g 1 1/4" Patent On Arrival Lt Hand Kaya George RN 10:31 AM 20g 1 1/4" Patent On Arrival Lt Antecubital Kaya George RN Allergies Penicillins Vital Signs Time BP (mmHg) HR (bpm) O2 Sat. RR (bpm) LOC 10:57 AM / % 5 = Fully awake and oriented or at pre-proc level 10:57 AM / % 4 = Oriented but drowsy 11:12 AM / % 4 = Oriented but drowsy 11:27 AM / % 4 = Oriented but drowsy 11:44 AM / % 4 = Oriented but drowsy 11:00 AM 133 / 92 73 97 % 13 11:05 AM 136 / 86 71 96 % 19 11:10 AM 139 / 86 72 96 % 14 11:15 AM 126 / 89 70 98 % 20 11:20 AM 138 / 89 70 99 % 20 11:25 AM 134 / 86 75 96 % 20 11:30 AM 137 / 85 72 97 % 22 11:35 AM 132 / 86 77 97 % 18 11:40 AM 133 / 76 75 95 % 22 11:45 AM 135 / 86 73 98 % 21 11:50 AM 135 / 86 68 98 % 17 11:55 AM 140 / 85 72 96 % 19 12:00 PM 142 / 84 71 95 % 10 12:05 PM 140 / 92 68 97 % 11 Procedural Medications Time Medication Dose Units Method Given By 10:57 AM Oxygen 2 L/min nasal cannula Kaya George RN 10:59 AM Versed 2 mg Intravenous Kaya George RN 11:10 AM Lidocaine 2% 10 ml Subcutaneous Tucker Chapman DO 11:11 AM Versed 1 mg Intravenous Kaya George RN 11:23 AM Heparin 3000 units Intravenous Kaya George RN 11:30 AM Adenosine 954 ml/hr Intracoronary Tucker Chapman DO 11:36 AM Nitroglycerin 200 mcg Intracoronary Tucker Chapman DO 11:51 AM Nitroglycerin 200 mcg Intracoronary Tucker Chapman DO 11:55 AM Nitroglycerin 100 mcg Intracoronary Tucker Chapman DO ASA Classification: CLASS III- Severe systemic disease (i.e. prior AMI, diabetes with vascular complications, morbid obesity) Mark Score Preprocedure Postprocedure Activity 2- Moves 4 extremities sustained head lift Activity Circulation 2- SBP +/= 20 points of pre-anesthetic level Circulation Consciousness 2- Awake and alert oriented x 3 Consciousness O2 Saturation 2- Able to maintain O2 satruation of 92% on room air O2 Saturation Respiratory 2- Able to deep breathe and cough well Respiratory Total Score 10 Total Score Contrast Agent: Isovue Diagnostic Contrast: 165 ml Total Contrast: 165 ml Fluoro Dose: 1624 mGy Activated Clotting Time Time Seconds to Clot 11:23 AM 167 12:05 PM 206 Procedure Log Time Note Enter By 10:45 AM Pt arrived to laborer syrup machine 2 at 10:45 [email or web address] 10:45 AM Kati Prather RN Position: Real Estate Representative Time in: 10:45 [email or web address] 10:45 AM Kaya George RN Position: Real Estate Representative Time in: 10:45 [email or web address] 10:46 AM Liliane, Matias RN Position: Monitor Time in: 10:45 [email or web address] 10:46 AM Rigo Chi (R) Position: Scrub Time in: 10:46 [email or web address] 10:46 AM Latosha Farfan RN Position: Monitor Time in: 10:46 [email or web address] 10:46 AM Patient charges- Angio tray pack, Navilyst 3mm J, Pulse Oximetry and ACIST tubing and transducer [email or web address] 10:46 AM Case Delayed no, inpatient [email or web address] 10:46 AM Physicpadmini paged/called 10:46. [email or web address] 10:46 AM Physicpadmini responded and notified patient is ready 10:46 [email or web address] 10:49 AM CathStat 10:54 AM Physician arrived 10:54 [email or web address] 10:54 AM Meet and greet completed [email or web address] 10:54 AM Sign in performed according to hospital policy. [email or web address] 10:54 AM Procedure start 10:54 [email or web address] 10:54 AM Hair removed from procedure site in holding area using clippers. Bilateral groin prepped with Chloraprep by Rigo Chi (R), then patient was draped. Skin intact. [email or web address] 10:57 AM Time: 10:57 Oxygen on at 2 L/min per nasal cannula by Kaya George RN [facility] 10:57 AM Time: 10:57 Patient comfortable and pain free: Yes [facility] 10:57 AM Time: 10:57LOC: 5 = Fully awake and oriented or at pre-proc level [facility] 10:57 AM Clinical Presentation: Non-STEMI [facility] 10:59 AM Vitals capture started with the following parameters, Patient=Adult, Interval=5 min, Initial Ptikyjqm=731 mmHg, Deflation Rate=5 mmHg, Cuff placed on Right Arm 11:00 AM Time: 10:59 Versed 2 mg Intravenous Given by Kaya George RN [facility] 11:00 AM HR=73 bpm, KVGM=997/92 mmhg, SpO2=97.0 %, Resp=13 B/min, Comment=nsr 11:05 AM HR=71 bpm, KPLJ=380/86 mmhg, SpO2=96.0 %, Resp=19 B/min, Comment=nsr 11:06 AM Pressure channel 2 zeroed. 11:06 AM ASA Class CLASS III- Severe systemic disease (i.e. prior AMI, diabetes with vascular complications, morbid obesity) [email or web address] 11:10 AM HR=72 bpm, WKMG=302/86 mmhg, SpO2=96.0 %, Resp=14 B/min, Comment=nsr 11:10 AM Time out performed according to hospital policy [email or web address] 11:10 AM Time: 11:10 10 ml Lidocaine 2% to right groin Subcutaneous Given by Tucker Chapman DO [email or web address] 11:11 AM Prior sheath to be exchanged for a different 6 fr sheath. [email or web address] 11:11 AM Time: 11:11 Versed 1 mg Intravenous Given by Kaya George RN [email or web address] 11:12 AM Sheath exchanged for a 6 Fr 11 cm Terumo [place] sheath [id number] [email or web address] 11:12 AM Time: 10:57LOC: 4 = Oriented but drowsy [email or web address] 11:12 AM Time: 10:57 Patient comfortable and pain free: Yes [email or web address] 11:13 AM 6Fr MP1 Runway guide catheter was used to cannulate the PCI vessel successfully. reused? No [email or web address] 11:13 AM Recorded Pressure: Ao, HR=69, Condition=Condition 1 (Aorta) Ao 116/65/91 11:14 AM Heparin gtt turned off. [email or web address] 11:15 AM [facility]atheter removed [facility] 11:15 AM HR=70 bpm, WKPW=778/89 mmhg, SpO2=98.0 %, Resp=20 B/min, Comment=nsr 11:15 AM 6Fr JL4 Cordis guide catheter was used to cannulate the PCI vessel successfully. reused? No [email or web address] 11:16 AM LCA angiography performed in multiple views. [email or web address] 11:16 AM Recorded Pressure: Ao, HR=73, Condition=Condition 1 (Aorta) Ao 120/75/96 11:20 AM HR=70 bpm, BSBZ=517/89 mmhg, SpO2=99.0 %, Resp=20 B/min 11:20 AM [ Start FFR sample ] 11:21 AM Pressure channel 3 zeroed. 11:21 AM Pressure channel 2 zeroed. 11:22 AM Inflation device was opened. [email or web address] 11:22 AM Comet Flow wire advanced to target lesion. [email or web address] 11:23 AM At 11:23 the ACT was 167 seconds. [email or web address] 11:24 AM Time: 11:23 Heparin 3000 units Intravenous Given by Kaya George RN [email or web address] 11:25 AM HR=75 bpm, MCJT=997/86 mmhg, SpO2=96.0 %, Resp=20 B/min, Comment=nsr 11: AM Time: 11:12 Patient comfortable and pain free: Yes [email or web address] 11: AM Time: 11:12LOC: 4 = Oriented but drowsy [email or web address] 11: AM Pressure channel 3 equalized to channel 2. 11:30 AM HR=72 bpm, SEBL=843/85 mmhg, SpO2=97.0 %, Resp=22 B/min, Comment=nsr 11:30 AM Time: 11:30 Adenosine 954 ml/hr administered Intracoronary by Tucker Chapman DO [facility] 11:30 AM FFR: Value=0.88, Condition=Condition 1, Device=VOLCANO PRIME WIRE 11:30 AM Recorded Pressure: Ao, PV1, FFR=0.88, HR=85, Condition=Condition 1 (Aorta) Ao 119/82/100, (Portal Vein) PV1 107/108/87 11:32 AM FFR Measurement: 0.88, LMCA [email or web address] 11:35 AM FFR: Value=0.79, Condition=Condition 1, Device=VOLCANO PRIME WIRE 11:35 AM Recorded Pressure: Ao, PV1, FFR=0.79, HR=78, Condition=Condition 1 (Aorta) Ao 136/90/111, (Portal Vein) PV1 114/117/87 11:35 AM HR=77 bpm, PIJL=118/86 mmhg, SpO2=97.0 %, Resp=18 B/min, Comment=nsr 11:35 AM Flow wire repositioned to LAD. [email or web address] 11:36 AM Time: 11:36 Nitroglycerin 200 mcg Intracoronary Given by Tucker Chapman DO [facility] 11:37 AM [ Start FFR sample ] 11:40 AM HR=75 bpm, UDBN=264/76 mmhg, SpO2=95.0 %, Resp=22 B/min, Comment=nsr 11:44 AM Time: :27LOC: 4 = Oriented but drowsy [email or web address] 11:44 AM Time: 11:27 Patient comfortable and pain free: Yes [email or web address] 11:44 AM .014 ChoICE PT Extra Support 300cm guide wire across target lesion- successful. reused? No [email or web address] 11:45 AM HR=73 bpm, KWWL=083/86 mmhg, SpO2=98.0 %, Resp=21 B/min, Comment=nsr 11:46 AM Flow Wire removed intact [email or web address] 11:48 AM Recorded Pressure: Ao, HR=70, Condition=Condition 1 (Aorta) Ao 131/83/104 11:50 AM HR=68 bpm, TOER=208/86 mmhg, SpO2=98.0 %, Resp=17 B/min, Comment=nsr 11:51 AM Time: 11:51 Nitroglycerin 200 mcg Intracoronary Given by Tucker Chapman DO [facility] 11:53 AM Pressure channel 2 zero failed. 11:55 AM HR=72 bpm, NVOM=474/85 mmhg, SpO2=96.0 %, Resp=19 B/min, Comment=nsr 11:55 AM Time: 11:55 Nitroglycerin 100 mcg Intracoronary Given by Tucker Chapman DO [facility] 11:58 AM Guide catheter removed intact. [email or web address] 11:59 AM Time: 11:44 Patient comfortable and pain free: Yes [email or web address] 11:59 AM Time: 11:44LOC: 4 = Oriented but drowsy [facility] 12:00 PM Procedure completed at 12:00 [email or web address] 12:00 PM Sign out completed: Radiation Dose 1623.77 mGy Fluoro Time: 14.5 Isovue 370 - 200ml contrast 165 ml given by Tucker Chapman DO. Complications: NoneCardiac Rehab Consult needed: NoConfirmed administered medications: Yes [email or web address] 12:00 PM HR=71 bpm, DJLG=175/84 mmhg, SpO2=95.0 %, Resp=10 B/min, Comment=nsr 12:00 PM Isovue 370 - 200ml,1 Bottle(s) used. [facility] 12:00 PM Post Blood Pressure 142/84 [email or web address] 12:01 PM Information taught Cardiac Cath and IVUS/Flowire [facility] 12:02 PM Education needs Procedure, Plan of Care, and Disease Process [email or web address] 12:02 PM Learning barriers :None [email or web address] 12:02 PM Education Methods Verbal [email or web address] 12:02 PM Education evaluation Able to repeat information [email or web address] 12:02 PM Site status No bleeding/hematoma - Rt Groin as reported by Rigo Chi RT (R) at 12:02 [email or web address] 12:02 PM Opsite applied [email or web address] 12:03 PM Delay to floor No [email or web address] 12:03 PM Family placed in Not available. [email or web address] 12:03 PM Complications: None [email or web address] 12:03 PM Fluoro Time: 14.5 [email or web address] 12:03 PM Isovue 370 - 200ml contrast 165 ml given by Tucker Chapman DO. [email or web address] 12:05 PM HR=68 bpm, FAIJ=665/92 mmhg, SpO2=97.0 %, Resp=11 B/min, Comment=nsr 12:15 PM Report given to Latosha ALBARRAN Pt taken to ICU Room #10. 12:23 [email or web address] 12:15 PM Patient out of room: 12:23 [email or web address] Complications Complication None None Hemodynamics Pressures Site Systolic/A Wave Diastolic/V Wave Mean AO 116 65 91 AO 120 75 96 AO 119 82 100 PV1 107 108 87 AO 136 90 111 PV1 114 117 87 AO 131 83 104 Post Procedure Information Blood Pressure: 142/84 mmHg Site Checks Time Location Status Staff Sheath In? Note 12:02 PM Rt Groin No bleeding/hematoma Rigo Chi RT (R) Pulses Time Site Pre-Procedure Post-Procedure Note 09/09/2017 10:31:00 AM Bilateral DP & PT 2+ 2+ Updated by Annamaria Alegre RT(R) on 09/09/2017 12:23:51 PM electronically signed on 09/09/2017 12:24:59 PM with status of Final
[2017-09-09] MEDS ORDERED: *HR* Atropine Sulfate 1 MG/10 ML SYRINGE ONE (15:13)
[2017-09-09] MEDS: 0.9 % Sodium Chloride 1,000 ML IVC SCH (18:02)
[2017-09-09] MEDS: *HR* LORazepam 2 MG/ML VIAL IVP PRN (21:53)
[2017-09-10] MEDS: 0.9 % Sodium Chloride 1,000 ML IVC SCH (03:39)
[2017-09-10] MEDS: Acetaminophen 325 MG TABLET PO PRN (03:51)
[2017-09-10 06:50] LABS: Basophils % 0.4 %; Eosinophils # 0.2 K/mcL (0.0-0.6); Hematocrit 37.7 % (35.3-44.9); Hemoglobin 12.3 g/dL (11.5-15.4); Immature Granulocytes % 0.4 % (0-4); Lymphocytes # 1.7 K/mcL (0.6-4.6); Lymphocytes % 20.8 %; Mean Corpuscular HGB Conc 32.6 g/dL (31.6-35.5); Mean Corpuscular Hemoglobin 29.4 pg (28.0-33.3); Mean Platelet Volume 9.7 fL (9.4-12.4); Monocytes # 0.6 K/mcL (0.0-1.3); Monocytes % 7.1 %; Neutrophils # 5.8 K/mcL (1.6-8.9); Platelet Count 235 K/mcL (140-400); Red Blood Count 4.19 M/mcL (3.82-4.97); Red Cell Distribution Width 13.2 % (11.5-14.5); Segmented Neutrophils % 69.3 %
[2017-09-10 07:03] LABS: Alanine Aminotransferase 22 Units/L (0-55); Albumin/Globulin Ratio 1.1 (1.1-2.2); Alkaline Phosphatase 55 Units/L (38-126); Aspartate Amino Transferase 43 Units/L (5-34); BUN/Creatinine Ratio 10 (6-26); Bilirubin,Total 0.4 mg/dL (0.2-1.2); Blood Urea Nitrogen 7 mg/dL (7-20); Calcium 7.8 mg/dL (8.6-10.8); Carbon Dioxide 21 mEq/L (19-29); Chloride 113 mEq/L (98-109); Globulin 2.7 g/dL (2.4-3.5); Glucose 90 mg/dL (70-99); Osmolality,Calculated 286 (280-300); Potassium 3.5 mEq/L (3.5-4.5); Sodium 139 mEq/L (136-145); Total Protein 5.7 g/dL (6.0-8.3); eGFR For African Americans > 60 (> 60); eGFR For Non-African Americans > 60 (> 60)
[2017-09-10] MEDS ORDERED: Diltiazem CD (24hr) 180 MG CAPSULE PO SCH (09:00)
[2017-09-10] MEDS ORDERED: NON-FORMULARY MEDICATION 1 EACH EACH (Metformin Hcl [Metformin Hcl Er] 1,000 MG) PO SCH (09:15)
--- NOTE | 2017-09-10 09:25 | Discharge Summary ---
Date of Encounter: 09/10/17 Time of Encounter: 09:23 - Discharge Diagnosis (1) Coronary artery vasospasm Priority: Primary Status: Acute (2) Chest pain Priority: Primary Status: Acute Qualifiers: Chest pain type: other chest pain Qualified Code(s): R07.89 - Other chest pain; R07.8 - Other chest pain (3) Polycystic ovarian syndrome Priority: Secondary Status: Chronic - Discharge Medications Prescriptions: Nitroglycerin 0.4 mg SL Q5MIN PRN #30 tab.subl PRN Reason: Chest Pain Aspirin Enteric Coated [Aspirin EC] 81 mg PO DAILY #30 tablet. Atorvastatin [Lipitor] 40 mg PO HS #30 tablet Diltiazem CD (24hr) [Cardizem CD] 180 mg PO DAILY #30 cap.er.24h Home Medications: BuPROPion XL (24 HR) [Wellbutrin Xl] 150 mg PO DAILY 09/08/17 [History] Citalopram Hydrobromide [Citalopram HBr] 40 mg PO DAILY 09/08/17 [History] Fluticasone Propionate Nasal [Flonase] 50 mcg NS DAILY 09/08/17 [History] Loratadine [Claritin] 10 mg PO DAILY 09/08/17 [History] Metformin HCl [Metformin HCl ER] 1,000 mg PO DAILY 09/08/17 [History] Aspirin Enteric Coated [Aspirin EC] 81 mg PO DAILY #30 tablet. 09/10/17 [Rx] Atorvastatin [Lipitor] 40 mg PO HS #30 tablet 09/10/17 [Rx] Diltiazem CD (24hr) [Cardizem CD] 180 mg PO DAILY #30 cap.er.24h 09/10/17 [Rx] Nitroglycerin 0.4 mg SL Q5MIN PRN #30 tab.subl 09/10/17 [Rx] Allergies/Adverse Reactions: 3 Allergy/AdvReac Type Severity Reaction Status Date / Time Penicillins Allergy Anaphylaxis Verified 09/08/17 11:25 Procedures/tests Complete & Pending: Procedures Performed prior 72 hours Category Date Time Status ECG 12 lead ECG [ECG] Routine Y 09/09/17 04:02 Completed Date of admission: 09/09/17 10:23 Primary care physician: PCP NONE Discharging clinician: Marii Salcido Anticipated date of discharge: 10/31/17 - Patient Status Disposition: Home, Self-Care Condition: Good Functional capacity at discharge: independent ambulation Overall status at discharge: patient is progressing back to baseline - Discharge Instructions Instructions: Nitroglycerin (By mouth), Diltiazem (By mouth), Aspirin (By mouth ), Atorvastatin (By mouth), Myocardial Infarction (DC), Chest Pain (DC), Left Heart Catheterization (DC) Follow Up With: Rob Coffey [Non-Partnered Physician] - 09/17/17 9:45 am ([facility]. [place], [place] ) NONE,PCP [Primary Care Provider] - Forms: ED Satisfaction Letter Additional Instructions: F/up with Cardiology in 1 week Resume Metformin 09/11/17 at dinner time. Take Atoravastin as prescribed until follow up appointment, and then proceed with physician instructions. - Diet and Activity Activity: resume usual activities as tolerated Diet: low fat, low cholesterol Hospital course: Ms. Hood Marin is a 41 year old female with the above medical problems, was admitted with retrosternal chest pain. Initial labs and EKG showed no acute abnormality. Initial troponin was negative. Patient continued to have intermittent chest pain after admission along with dynamic EKG changes showing ST segment elevation in V2 along with reciprocal changes in lateral leads, per cardiology. Her repeat troponins were also significantly elevated up to a maximum of 24. She was started on anticoagulation with IV heparin drip, aspirin , beta reymundo and statin. Patient was taken for urgent left heart catheterization and noted to have coronary vessel spasm along with segment of LAD. She was then started on calcium channel reymundo and IV nitroglycerin drip and underwent repeat left heart catheterization for better view of LAD. She was noted to have no flow limiting stenosis of LAD but noted to have coronary vasospasm. She gradually did much better and remained chest pain-free. She is currently off nitroglycerin and heparin drips. Patient was evaluated by cardiology today and she is deemed stable for discharge with outpatient follow-up. She is being discharged on aspirin, calcium channel reymundo, statin and when necessary nitroglycerin. - Time Spent with Patient Total time spent providing and/or coordinating discharge services: Greater than 30 minutes (45 min) - Constitutional Vitals: Temp Pulse Resp BP Pulse Ox 98.3 F 82 14 119/73 94 09/10/17 04:00 09/10/17 07:00 09/10/17 07:00 09/10/17 07:00 09/10/17 07:00 General appearance: Present: A&O X 3, answers questions appropriately - Respiratory Respiratory exam: Present: CTAB. Absent: accessory muscle use, rales, rhonchi, wheezes - Cardiovascular Cardiovascular exam: Present: RRR, +S1, +S2. Absent: diastolic murmur, gallop, rubs, systolic murmur
[2017-09-10] MEDS: BuPROPion XL (24 HR) 150 MG TABLET PO SCH (09:47)
[2017-09-10] MEDS: Famotidine 20 MG TABLET PO SCH (09:47)
[2017-09-10] MEDS: Aspirin Enteric Coated 81 MG Tablet PO SCH (09:47)
--- NOTE | 2017-09-10 10:52 | Cardiology Progress Note ---
Date of Encounter: 09/10/17 Time of Encounter: 08:45 Assessment and Plan (1) Coronary artery vasospasm Current Visit: Yes Status: Acute Presented with chest pain. Found to have ST elevation concerning for acute FL on repeat EKG during stay. Patient was taken urgently to the cardiac catheter lab where she was found to have a long segment of the mid LAD with vasospasms. Due to severe vasospasms there was concern for disease in the LAD that could not be visualized fully and repeat LHC after medical management. She was placed on CCB and NTG gtt. Troponin up to 24. She then underwent repeat LHC. I discussed with Dr Chapman. LHC demonstrated a 90% stenosis mLAD, once IV NTG injected there was 0% stenosis, this was diagnostic of coronary vasospasms. There was no flow limiting calcifications. LVEF during initial LHC was 35% with mid to distal/apical and distal inferior wall dyskinesis. TTE completed LVEF 60%. Normal left ventricular diastolic function. Normal right ventricular structure and function. No significant valvular dysfunction. No pulmonary hypertension. Chest pain resolved. Continue cardizem at 180 mg daily. NTG SL PRN. Continue asa. Patient works at [employer] and she states that she can only follow with [employer] providers due to insurance. Nursing staff will assist setting up-f/u appointment with [employer] cardiology in 1 week. Activity restrictions reviewed:No lifting over 10 lbs for one week. No driving for a week. No tub baths for one week. He can take showers. Cardiology signing off. Please call with questions. Discussion w patient/family: The assessment and plan as outlined above was discussed with the patient and/or family members who expressed understanding and agreement. All questions were answered. Thank you for involving us in the care of your patient. Please call with any questions. Subjective Principal diagnosis: coronary vasospasms Interval history: Denies recurrent chest pain since starting cardizem. Ambulating in room. Objective Vital Signs, Last 4 Hours Pulse Resp BP Pulse Ox 09/10/17 09:00 94 14 108/77 95 09/10/17 08:00 73 17 110/61 94 09/10/17 07:00 97 14 119/73 94 General: Conversant, No Apparent Distress HEENT: Atraumatic, Normocephaly, Mucus Membranes Moist Neck: No JVD, Normal carotid pulses Cardiac: Reg Rate and Rhythm, Normal S1 and S2, No Murmur Lungs: Normal Breath Sounds, No Wheeze, Rales, Rhonchi Neuro: Alert and responsive, No focal deficits noted Abdomen: Soft, Non-Tender Skin: No rashes noted on visualized skin Musculoskeletal: No Chest Wall Tenderness Extremities: No Clubbing, No Cyanosis, No Edema, Normal Pulses, Other (right groin soft without hematoma. ) Results 09/10/17 06:17 09/10/17 06:17 Lab Results 09/09/17 09/10/17 09/10/17 14:10 06: 06:17 WBC 8.3 Hgb 12.3 Hct 37.7 Plt Count 235 APTT 36.5 H Sodium 139 Potassium 3.5 Chloride 113 H Carbon Dioxide 21 BUN 7 Creatinine 0.71 Glucose 90 Calcium 7.8 L Total Bilirubin 0.4 AST 43 H ALT 22 Alkaline Phosphatase 55 - Imaging and Cardiology Echo: report reviewed Cardiac cath: report reviewed - EKG Interpretation EKG results cardiology: personally reviewed Consult Discharge Plan - Plan Instructions: Nitroglycerin (By mouth), Diltiazem (By mouth), Aspirin (By mouth ), Atorvastatin (By mouth), Myocardial Infarction (DC), Chest Pain (DC), Left Heart Catheterization (DC) Additional Instructions: F/up with Cardiology in 1 week Resume Metformin 09/11/17 at dinner time. Take Atoravastin as prescribed until follow up appointment, and then proceed with physician instructions. Referrals: Rob Coffey [Non-Partnered Physician] - 09/17/17 9:45 am ([facility]. [place], [place] ) NONE,PCP [Primary Care Provider] - Prescriptions: Nitroglycerin 0.4 mg SL Q5MIN PRN #30 tab.subl PRN Reason: Chest Pain Aspirin Enteric Coated [Aspirin EC] 81 mg PO DAILY #30 tablet. Atorvastatin [Lipitor] 40 mg PO HS #30 tablet Diltiazem CD (24hr) [Cardizem CD] 180 mg PO DAILY #30 cap.er.24h
[2017-09-10 11:10] VITALS: BP 103/62
[2017-09-10 18:21] LABS: Amphetamines NEGATIVE ng/mL (Cutoff 30); Barbiturates NEGATIVE ng/mL (Cutoff 75); Benzodiazepines NEGATIVE ng/mL (Cutoff 75); Cocaine NEGATIVE ng/mL (Cutoff 30); Methadone NEGATIVE ng/mL (Cutoff 40); Methamphetamines NEGATIVE ng/mL (Cutoff 30); Opiates NEGATIVE ng/mL (Cutoff 30); Phencyclidine NEGATIVE ng/mL (Cutoff 15)
--- NOTE | 2017-09-11 08:20 | Electrocardiograph Report ---
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
--- NOTE | 2017-09-12 09:51 | Electrocardiograph Report ---
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
--- NOTE | 2017-09-13 18:38 | Electrocardiograph Report ---
[address] [place] [address] Test Date: 2017-09-09 Pat Name: Nayely Marin Department: 109 Room: 10 Gender: F Mask Former: HAYDER : 1975 Requested By: Marii Salcido Order Number: [id number] Reading MD: Rohan Baig Measurements Intervals [place] Rate: 79 P: 65 [place]: 150 QRS: 29 QRSD: 104 T: 13 QT: 402 QTc: 436 Interpretive Statements SINUS RHYTHM POSSIBLE INFERIOR MYOCARDIAL INFARCTION, PROBABLY OLD MODERATE T-WAVE ABNORMALITY, CONSIDER ANTERIOR ISCHEMIA Electronically Signed On 09-13-2017 18:37:09 EDT by Rohan Baig
== END 2017-09-10 12:03 | disposition home or self-care (01) | DRG 282 ==
LOC: EMEROO 09:57 → 3BNU 09:57 → ICNU 19:53 → SUATTDRO 09-09 10:23
PROVIDERS: ADMIT Nurse Practitioner Family; ATTEND Internal Medicine

== ENCOUNTER 2021-07-20 20:56 | Observation (INO) ==
[2021-07-20 23:49] LABS: Basophils % 0.3 %; Eosinophils # 0.3 K/mcL (0.0-0.6); Eosinophils % 2.8 %; Immature Granulocytes % 0.2 % (0-4); Lymphocytes # 2.5 K/mcL (0.6-4.6); Lymphocytes % 27.6 %; Mean Corpuscular HGB Conc 33.3 g/dL (31.6-35.5); Mean Corpuscular Hemoglobin 30.3 pg (28.0-33.3); Mean Corpuscular Volume 90.9 fL (83.0-100.0); Mean Platelet Volume 10.3 fL (9.4-12.4); Monocytes # 0.6 K/mcL (0.0-1.3); Monocytes % 6.3 %; Neutrophils # 5.8 K/mcL (1.6-8.9); Platelet Count 240 K/mcL (140-400); Red Blood Count 4.95 M/mcL (3.82-4.97); Red Cell Distribution Width 12.9 % (11.5-14.5); Segmented Neutrophils % 62.8 %; White Blood Count 9.2 K/mcL (4.3-11.1)
[2021-07-21 00:14] LABS: BUN/Creatinine Ratio 13 (6-26); Blood Urea Nitrogen 13 mg/dL (6-20); Calcium 9.4 mg/dL (8.6-10.3); Carbon Dioxide 24 mEq/L (23-29); Chloride 109 mEq/L (98-107); Glucose 92 mg/dL (70-105); Osmolality,Calculated 292 (280-300); Potassium 3.5 mEq/L (3.5-5.1); Sodium 141 mEq/L (136-145); Troponin I < 0.03 ng/mL (< 0.04); eGFR For African Americans > 60 (> 60); eGFR For Non-African Americans > 60 (> 60)
[2021-07-21] MEDS ORDERED: Aspirin 81 MG TAB.CHEW PO ONE (02:09)
[2021-07-21 03:58] LABS: Adenovirus Not Detected (Not Detect); Bordetella Pertussis Not Detected (Not Detect); Chlamydophila pneumoniae Not Detected (Not Detect); Coronavirus 229E Not Detected (Not Detect); Coronavirus HKU1 Not Detected (Not Detect); Coronavirus NL63 Not Detected (Not Detect); Coronavirus OC43 Not Detected (Not Detect); Human Metapneumovirus Not Detected (Not Detect); Human Rhinovirus/Enterovirus Not Detected (Not Detect); Influenza A Subtype 2009 H1 Not Detected (Not Detect); Influenza B Not Detected (Not Detect); Mycoplasma pneumoniae Not Detected (Not Detect); Parainfluenza Virus 1 Not Detected (Not Detect); Parainfluenza Virus 2 Not Detected (Not Detect); Parainfluenza Virus 3 Not Detected (Not Detect); Parainfluenza Virus 4 Not Detected (Not Detect); Respiratory Syncytial Virus Not Detected (Not Detect); SARS-CoV-2 Not Detected (Not Detect)
[2021-07-21] MEDS ORDERED: Perflutren Lipid Microsphere 1.3 ML in 0.9 % Sodium Chloride 8.7 ML IVP PRN (05:18)
[2021-07-21] MEDS ORDERED: Ondansetron 4 MG/2 ML VIAL IVP PRN (05:28)
[2021-07-21] MEDS ORDERED: Naloxone 0.4 MG/ML INJ IVP PRN (05:28)
[2021-07-21] MEDS ORDERED: Isovue-370 500 ML BOTTLE IVP ONE (05:39)
[2021-07-21 05:43] LABS: Amphetamine Screen,Urine Negative ng/mL (Cutoff=1000); Barbiturate Screen,Urine Negative ng/mL (Cutoff=200); Benzodiazepines Screen,Urine Negative ng/mL (Cutoff=200); Cannabinoid Screen,Urine Negative ng/mL (Cutoff = 50); Cocaine Screen,Urine Negative ng/mL (Cutoff= 300); Opiate Screen,Urine Negative ng/mL (Cutoff=300); Phencyclidine Screen,Urine Negative ng/mL (Cutoff=25)
[2021-07-21] MEDS ORDERED: Nitroglycerin 0.4 MG TAB.SUBL SL PRN (05:50)
[2021-07-21 05:52] LABS: Hematocrit 43.4 % (35.3-44.9); Hemoglobin 13.9 g/dL (11.5-15.4); Mean Corpuscular Hemoglobin 29.8 pg (28.0-33.3); Mean Corpuscular Volume 92.9 fL (83.0-100.0); Mean Platelet Volume 10.2 fL (9.4-12.4); Platelet Count 222 K/mcL (140-400); Red Blood Count 4.67 M/mcL (3.82-4.97); Red Cell Distribution Width 12.8 % (11.5-14.5); White Blood Count 7.6 K/mcL (4.3-11.1)
[2021-07-21 05:56] LABS: Amorphous Sediment,Urine Few per hpf (None-Few); Bacteria,Urine Few per hpf (None-Few); Bilirubin,Urine Negative (Negative); Blood,Urine Negative (Negative); Clarity,Urine Turbid (Clear); Color,Urine Light-Yellow (Yellow); Glucose,Urine (UA) Normal (Normal); Ketones,Urine Negative (Negative); Leukocyte Esterase,Urine Moderate (Negative); Nitrite,Urine Negative (Negative); PH,Urine 7.5 pH Units (5.0-8.0); Protein,Urine Negative (Neg-Trace); Specific Gravity,Urine 1.014 (1.010-1.025); Squamous Epithelial Cell,Urine Few per hpf (None-Few); Urobilinogen,Urine Normal (Normal)
[2021-07-21] MEDS ORDERED: Regadenoson 0.4 MG/5 ML SYRINGE IVP ONE ×2 (06:13→07:19)
[2021-07-21 06:15] LABS: Troponin I < 0.03 ng/mL (< 0.04)
[2021-07-21] MEDS: *HR* Heparin 5,000 UNIT/ML VIAL SQ SCH ×3 (06:47→21:11)
[2021-07-21 07:48] LABS: Thyroid Stimulating Hormone 1.062 mcIU/mL (0.340-5.600)
[2021-07-21 07:56] LABS: BUN/Creatinine Ratio 15 (6-26); Blood Urea Nitrogen 13 mg/dL (6-20); Calcium 8.9 mg/dL (8.6-10.3); Carbon Dioxide 24 mEq/L (23-29); Chloride 109 mEq/L (98-107); Glucose 101 mg/dL (70-105); Osmolality,Calculated 288 (280-300); Potassium 3.6 mEq/L (3.5-5.1); Sodium 139 mEq/L (136-145); eGFR For African Americans > 60 (> 60); eGFR For Non-African Americans > 60 (> 60)
[2021-07-21 07:57] LABS: Chol/HDL Ratio 2.2 (0-4.9); Magnesium 2.1 mg/dL (1.6-2.6)
[2021-07-21 07:58] LABS: Prothrombin Time 11.9 Seconds (9.4-12.1)
[2021-07-21 08:00] LABS: Activated Partial Thrombo Time 29.9 Seconds (26.0-36.0)
[2021-07-21] MEDS: FLUoxetine 20 MG CAPSULE PO SCH (09:35)
[2021-07-21] MEDS: Aspirin Enteric Coated 81 MG Tablet PO SCH (09:36)
[2021-07-21] MEDS: Topiramate 25 MG CAP.SPRINK PO SCH (10:37)
[2021-07-21] MEDS: DilTIAZem CD (24hr) 240 MG CAP.ER.24H PO SCH (10:37)
[2021-07-21] MEDS: Isosorbide MONOnitrate (24 HR) 60 MG TAB.ER.24H PO SCH (13:47)
[2021-07-21] MEDS: Acetaminophen 325 MG TABLET PO PRN (15:43)
[2021-07-21] MEDS: Nitrofurantoin (BID) 100 MG CAPSULE PO SCH (17:10)
[2021-07-22 02:40] LABS: Hematocrit 40.6 % (35.3-44.9); Hemoglobin 13.3 g/dL (11.5-15.4); Mean Corpuscular HGB Conc 32.8 g/dL (31.6-35.5); Mean Corpuscular Hemoglobin 30.2 pg (28.0-33.3); Mean Corpuscular Volume 92.3 fL (83.0-100.0); Mean Platelet Volume 10.3 fL (9.4-12.4); Platelet Count 235 K/mcL (140-400); White Blood Count 8.1 K/mcL (4.3-11.1)
[2021-07-22 02:57] LABS: BUN/Creatinine Ratio 20 (6-26); Blood Urea Nitrogen 20 mg/dL (6-20); Calcium 9.1 mg/dL (8.6-10.3); Carbon Dioxide 24 mEq/L (23-29); Chloride 110 mEq/L (98-107); Glucose 108 mg/dL (70-105); Osmolality,Calculated 295 (280-300); Potassium 3.6 mEq/L (3.5-5.1); Sodium 141 mEq/L (136-145); eGFR For African Americans > 60 (> 60); eGFR For Non-African Americans > 60 (> 60)
[2021-07-22] MEDS: *HR* Heparin 5,000 UNIT/ML VIAL SQ SCH ×3 (05:32→20:01)
[2021-07-22] MEDS: FLUoxetine 20 MG CAPSULE PO SCH (10:25)
[2021-07-22] MEDS: Isosorbide MONOnitrate (24 HR) 60 MG TAB.ER.24H PO SCH (10:25)
[2021-07-22] MEDS: Aspirin Enteric Coated 81 MG Tablet PO SCH (10:26)
[2021-07-22] MEDS: Acetaminophen 325 MG TABLET PO PRN (10:26)
[2021-07-22] MEDS: Nitrofurantoin (BID) 100 MG CAPSULE PO SCH (10:26)
[2021-07-22] MEDS: DilTIAZem CD (24hr) 240 MG CAP.ER.24H PO SCH (10:26)
[2021-07-22] MEDS: Topiramate 25 MG CAP.SPRINK PO SCH (10:26)
[2021-07-23] MEDS: *HR* Heparin 5,000 UNIT/ML VIAL SQ SCH ×2 (05:13→14:50)
[2021-07-23] MEDS: Acetaminophen 325 MG TABLET PO PRN (07:45)
[2021-07-23] MEDS: Aspirin Enteric Coated 81 MG Tablet PO SCH (07:46)
[2021-07-23] MEDS: FLUoxetine 20 MG CAPSULE PO SCH (07:46)
[2021-07-23] MEDS: DilTIAZem CD (24hr) 240 MG CAP.ER.24H PO SCH (07:46)
[2021-07-23] MEDS: Topiramate 25 MG CAP.SPRINK PO SCH (07:46)
[2021-07-23] MEDS: Isosorbide MONOnitrate (24 HR) 60 MG TAB.ER.24H PO SCH (07:46)
[2021-07-23 07:48] VITALS: TEMP 98.1
[2021-07-23] MEDS ORDERED: Isosorbide MONOnitrate (24 HR) 60 MG TAB.ER.24H PO SCH (09:00)
[2021-07-23] MEDS ORDERED: Naltrexone HCl 50 MG TABLET PO SCH (09:00)
[2021-07-23 11:00] VITALS: BP 101/59; PULSE 63; O2SAT 96
== END 2021-07-23 16:03 | disposition home or self-care (01) ==
LOC: EMEROOARM 20:56 → CDU 20:56 → 3BNU 07-21 14:58
PROVIDERS: ADMIT Internal Medicine; ATTEND Internal Medicine